=== PATIENT | female | born 1960 | race Two or more races ===

== ENCOUNTER 2020-01-25 02:09 | Emergency (ER) | payer MEDICARE, OTHER ==
[~2020-01-25] VITALS: Ht 157.5 cm; Wt 72.6 kg
--- NOTE | 2020-01-25 02:12 | NUR ---
PT BIB BIBEMS C/O FATIGUE, BODY ACHES, FEVER X1 WEEK. TESTED COVID (+) 01/18/20. PT PLACED IN BED 18 ON [employer] AND PULSE OX. MD AT BEDSIDE FOR EVAL.
[2020-01-25] MEDS ORDERED: ACETAMINOPHEN ES 500 MG TABLET ONE (02:30)
[2020-01-25] MEDS ORDERED: ACETAMINOPHEN ES 500 MG TABLET PO ONE (02:30)
[2020-01-25 02:43] LABS: BASOPHILS % (AUTO) 0.6 % (0.0-2.0); HEMATOCRIT 42 % (33-45); HEMOGLOBIN 14.1 g/dL (11.5-14.8); LYMPHOCYTES # (AUTO) 1.1 /CMM (0.8-4.8); LYMPHOCYTES % (AUTO) 19.2 % (20.0-44.0); MEAN CORPUSCULAR HGB CONC 33 g/dl (31.0-36.0); MEAN CORPUSCULAR VOLUME 88 fL (82-100); MONOCYTES # (AUTO) 0.3 /CMM (0.1-1.30); MONOCYTES % (AUTO) 4.9 % (2.0-12.0); NEUTROPHILS # (AUTO) 4.5 /CMM (1.8-8.9); NEUTROPHILS % (AUTO) 75.3 % (43.0-81.0); PLATELET COUNT (AUTO) 187 /CMM (150-450); RED BLOOD CELL COUNT(AUTO) 4.82 MIL/uL (4.0-5.2)
[2020-01-25 02:59] LABS: CALCIUM, SERUM 8.7 mg/dL (8.5-10.1); CARBON DIOXIDE 26 mmol/L (21-32); CHLORIDE 99 mmol/L (98-107); CREATININE 1.1 mg/dL (0.6-1.3); GLUCOSE 127 mg/dL (74-106); POTASSIUM 3.4 mmol/L (3.5-5.1); SODIUM SERUM 136 mmol/L (136-145); UREA NITROGEN, BLOOD 11 mg/dL (7-18)
[2020-01-25 03:09] LABS: ALANINE AMINOTRANSFERASE 50 U/L (12-78); ALBUMIN 3.8 g/dL (3.4-5.0); ALKALINE PHOSPHATASE 134 U/L (46-116); ASPARTATE AMINOTRANSFERASE 55 U/L (15-37); B-TYPE NATRIURETIC PEPTIDE 300 PG/ML (0-125); BILIRUBIN,TOTAL 0.4 mg/dL (0.2-1.0); TOTAL PROTEIN, SERUM 8.5 g/dL (6.4-8.2)
--- NOTE | 2020-01-25 03:11 | NUR ---
RECHECKED TEMP 99.7. VSS.
[2020-01-25 03:24] LABS: C-REACTIVE PROTEIN 1.9 mg/dL (0.0-0.9); CREATINE KINASE, TOTAL 344 U/L (26-192); FERRITIN 171 ng/mL (8-388)
[2020-01-25 03:34] LABS: D-DIMER 1.5 mg/L(FEU (0.17-0.50)
--- NOTE | 2020-01-25 03:54 | NUR ---
AMBULATED THE PT AROUND THE ROOM AND BACK. SAT STAYED AT 98%. AWARE.
[2020-01-25] MEDS ORDERED: IOHEXOL-350 100 ML VIAL IV ONE ×2 (04:26→04:30)
[2020-01-25] MEDS ORDERED: CT SWABBABLE VALVE TRANS SET 1 EA INFUS.SET MC ONE (04:26)
[2020-01-25] MEDS ORDERED: IV NS 0.9% 250 ML IV ONE (04:27)
--- NOTE | 2020-01-25 04:41 | NUR ---
BACK FROM CT
--- NOTE | 2020-01-25 05:50 | NUR ---
Patient discharged to home in stable condition. Written and verbal after care instructions given. Patient verbalizes understanding of instruction and RX. Pt ambulated with steady gait. Pt sat 98%. Picked up by family.
--- NOTE | 2020-01-25 05:50 | NUR ---
IV removed. Catheter intact and site benign. Pressure and 4x4 applied to site. No bleeding noted.
[2020-01-25 06:29] VITALS: BP 127/78
== END 2020-01-25 06:30 | disposition home or self-care (01) ==
LOC: ER 02:12
DX: U07.1 COVID-19 (principal); I10 Essential (primary) hypertension; E11.9 Type 2 diabetes mellitus without complications
CPT/HCPCS: 36415; 71045; 71275; 80053; 82550; 82553; 82728; 83605; 83615; 83880; 84145; 84484; 85025; 85378; 85385; 85730; 86140; 87040 ×2; 87804 ×2; 93005; 99285; J7050; Q9967 ×2